=== PATIENT | male | born 1975 ===

== ENCOUNTER 2022-07-07 16:45 | Emergency (ER) | payer OTHER, SELFPAY ==
[2022-07-07 16:51] VITALS: BP 169/112; PULSE 89; RESP 17; TEMP 36.6; O2SAT 98
--- NOTE | 2022-07-07 16:59 | ECG_ITS ---
Measurements Intervals [place] Rate: 77 P: 41 IN: 178 QRS: 12 QRSD: 76 T: -18 QT: 382 QTc: 433 Interpretive Statements SINUS RHYTHM MODERATE VOLTAGE CRITERIA FOR LVH, CONSIDER NORMAL VARIANT [MEETS CRITERIA IN ONE OF: R(aVL), S(V1), R(V5), R(V5/V6)+S(V1)] NONSPECIFIC T-WAVE ABNORMALITY ABNORMAL ECG NO PREVIOUS ECG AVAILABLE FOR COMPARISON Electronically Signed On 07-08-2022 12:45:42 [facility] by Chava Santiago M.D.
== END 2022-07-07 17:03 | disposition left against medical advice (07) ==
LOC: ANHED 17:39
PROVIDERS: Emergency Provider Emergency Medicine
DX: I10 Essential (primary) hypertension (principal); T46.5X6A Underdosing of other antihypertensive drugs, initial encounter
CPT/HCPCS: 93005; 99199